=== PATIENT | male | born 1935 | race Caucasian/White ===

== ENCOUNTER → 2020-08-26 15:02 | Outpatient (CLI) | payer MEDICARE, SELFPAY ==
--- NOTE | 2020-08-26 15:09 | DI.ECHO.S_ITS ---
[facility] +---------+ : : [address] : [address] : : : : [id number] : : : : Phone: [phone] +---------+ Echocardiogram Report + + :Name: GOGO CHINO Study Date: 08/26/2020 Height: 69 in : :[facility] ReadingLocation: Weight: 186 lb : : Gender: Male BSA: 2.0 m2 : :: 1935 Age: 84 yrs BP: 172/86 mmHg: :Reason For Study: CARDIOMYOPATHY : :Ordering Physician: ERNESTO, : :IVA Performed By: Carmelina Rouse : :Referring: IVA GALLOWAY : + + Interpretation Summary Limited Echo: 1) Normal left ventricular size, thickness, wall motion, and systolic function (EF 55-60%). 2) No prior Echo available for comparison. Procedure: A two-dimensional transthoracic echocardiogram with color flow and Doppler was performed in limited views only to assess ejection fraction.. The patient was in sinus bradycardia with heart rates between 57-60 bpm during the exam. Left Ventricle: The left ventricle is normal in size and wall thickness. The ejection fraction is estimated to be 55-60%. Right Ventricle: The right ventricle is normal in size and function. Atria: The left atrium is moderately dilated. Right atrial size is normal. Pericardium/ Pleura There is no pericardial effusion. There is no pleural effusion. MMode/2D Measurements & Calculations LVIDd: 5.2 cm LA A2 area: 25.8 cm2 LVIDs: 3.5 cm LA A4 area: 24.0 cm2 FS: 33.0 % LA length (vol): 6.0 cm IVSd: 0.95 cm LA vol: 86.8 ml LVPWd: 0.73 cm LA vol index: 43.3 ml/m2 LV pritchett. diameter/BSA (cm/m^2): 2.6 LV sys. diameter/BSA (cm/m^2): 1.7 RA long axis: 5.4 cm RVD1 (basal): 3.1 cm RA area: 16.5 cm2 TAPSE: 1.9 cm RA vol: 42.5 ml RA : 21.2 ml/m2 Reading Physician:04:01 PM
== END ==
PROVIDERS: PCP Family Medicine; Referring Provider Internal Medicine Cardiovascular Disease; Visit Provider Internal Medicine Cardiovascular Disease
DX: I42.9 Cardiomyopathy, unspecified (principal)
CPT/HCPCS: 93307